=== PATIENT | female | born 1980 | race Caucasian/White ===

== ENCOUNTER 2020-09-09 14:33 | Outpatient (CLI) | payer BC, SELFPAY | END 2020-09-09 14:34 | disposition home or self-care (01) | LOC: ANHAUDIO 14:35 | PROVIDERS: PCP Family Medicine Sports Medicine; Referring Provider Otolaryngology; Visit Provider Otolaryngology | DX: H65.21 Chronic serous otitis media, right ear (principal); H69.81 Other specified disorders of Eustachian tube, right ear; H90.71 Mixed conductive and sensorineural hearing loss, unilateral, right ear, with unrestricted hearing on the contralateral side | CPT/HCPCS: 92557; 92567 ==

== ENCOUNTER 2021-10-30 01:09 | Day surgery (SDC) | payer BC, SELFPAY ==
[2021-10-28 13:56] VITALS: BMI 23.6
--- NOTE | 2021-10-28 14:05 | PC.NURSE ---
Report to the Outpatient Waiting Room, entrance under the green pavilion located off [facility], at time 0900 on date 10/30/21. OR Time: 1100. - You and your visitor will be asked a series of questions to screen for COVID 19 for your protection. - A mask is required within the hospital. One visitor will be allowed to accompany the patient into the hospital. Patients visitor will be instructed to remain with patient at all times or leave the building. We will allow the visitor to come back to the postoperative area when patient is ready. Preoperative COVID Testing Requirements: PT TO E-MAIL + RESULTS No COVID Test needed if: (proof is required; if not received patient will have Rapid Test prior to entry) - Patient has received COVID Vaccine at least 14 days prior to procedure date or - Patient has positive COVID test result within last 90 days of surgery date. COVID Test needed if above criteria is not met Patients may have clear liquids (water, carbonated beverages, clear teas, apple juice) until 3 hours prior to surgery with a maximum of 20 ounces. - No food from midnight until time of surgery Take the following medications with a SIP of water the morning of surgery: NONE Medications to discontinue per physician: N/A Date to take last dose: N/A Please no make-up, nail vietnamese, hairspray, perfume, deodorant, or body powder the day of surgery. No jewelry (including any body piercings) or valuables the day of surgery, leave them at home. Please take a shower or bath the night before, or the morning of, surgery with an antibacterial soap. Wear comfortable, loose fitting clothing. - Jewelry must be removed prior to entering the operating room. Rings and piercings that are not removed may be cut off. - The hospital will not accept responsibility for valuables. - Please leave all valuables, including medications, at home the day of surgery. If you are going home after surgery, a licensed seasonal driver must drive you home. - NO public transportation without another adult. - We recommend that an adult stay with you for 24 hours following discharge. - We also recommend that you do not drive, make important decision, drink alcoholic beverages, or take any drugs that were not prescribed by your health care provider for at least 24 hours after your discharge time. Follow any additional instructions given to you from your surgeon. Telephone instructions given to ELIAZAR WEBB and asked if any additional questions and then verbalized understanding. Patient advised to call surgeon office or pre surgery nurse liaison [phone] if any additional questions.
--- NOTE | 2021-10-28 17:17 | PM.IMHP ---
H&P: HPI History of Present Illness Date/Time: 10/28/21 17:17 Chief Complaint: Eustachian tube dysfunction right otitis media right hearing loss Narrative: patient presents for planned surgical procedure no change in symptoms no change in history Review of Systems Constitutional: Constitutional: Denies fatigue, Denies fever(s) and Denies lethargy Eyes: Eyes: Denies blurry vision and Denies change in vision ENT: Reports as per HPI Cardiovascular: Cardiovascular: Denies chest pain Respiratory: Respiratory: Denies cough Endocrine: Endocrine: Denies fatigue Hematologic/Lymphatic: Hematologic/Lymphatic: Denies easy bleeding, Denies easy bruising and Denies lymphadenopathy Allergic/Immunologic: Allergic/Immunologic: Denies seasonal rhinorrhea [facility] Social History Social History Smoking packs per day: 1 Smoking cigarettes per day: 20.0 Years smoked: 8 Smoking pack-years: 8.00 Smoking status: Current some day smoker Tobacco type: cigarettes Second hand tobacco smoke exposure: No Smoking end date: 08/22/09 Alcohol intake: never Substance use: never Substance use type: does not use Living arrangements: with family Spiritual care concerns: No Meds Home Medications and Allergies Home Medications Medication Instructions Recorded Confirmed Type No Home Medications 09/23/20 10/28/21 History Allergies Allergy/AdvReac Type Severity Reaction Status Date / Time No Known Allergies Allergy Verified 10/28/21 13:55 Exam Const: General: cooperative, healthy appearing, comfortable, well developed and alert HENMT: Head: normal to inspection, normocephalic and atraumatic Ears: hearing grossly normal bilaterally, external ears normal, TM's abnormal bilaterally ( left normal right with fluid retracted) and EAC's normal General nose exam: Normal external nose present, Normal nares present, No nasal polyps present, Normal nasal mucous membranes and turbinates present and Normal septum present Face and sinus: normal facial exam Mouth: Yes Normal oral and palatal mucosa present, Yes lip normal, Yes tongue normal, Yes oropharynx normal and Yes moist mucous membranes Teeth and gingiva: dentition normal and gingiva normal Throat: posterior oropharynx normal, tonsils normal and uvula midline Eyes: General: appearance normal, both eyes and all related structures Periorbital: periorbital findings normal Eyelids: eyelids normal Conjunctivae: conjunctivae normal Sclera: sclerae normal Neck: Neck: normal visual inspection, full ROM and no lymphadenopathy Thyroid: thyroid normal Lymphatic: no lymphadenopathy noted Resp: Effort & Inspection: normal respiratory effort and able to speak in complete sentences Cardio: Jugular venous distension: no JVD Neuro: Cranial nerves: Yes CN's II-XII intact bilaterally Assessment and Plan Assessment and plan (1) Conductive hearing loss in right ear: Code(s): H90.11 - Conductive hearing loss, unilateral, right ear, with unrestricted hearing on the contralateral side Status: Acute Assessment and Plan: plan is for the OR right-sided myringotomy tube insertion. Risks were discussed including bleeding infection damage to any structure above the clavicles facial nerve damage need for further procedures failure to resolve symptoms. Need T-tube. (2) Chronic serous otitis media of right ear: Code(s): H65.21 - Chronic serous otitis media, right ear Status: Acute (3) Hearing loss in right ear: Code(s): H91.91 - Unspecified hearing loss, right ear Status: Acute (4) Dysfunction of right eustachian tube: Code(s): H69.81 - Other specified disorders of Eustachian tube, right ear Status: Acute
--- NOTE | 2021-10-30 07:20 | WPDHPUPDATE1 ---
History and Physical Update Update Date/Time: 10/30/21 07:20 History and Physical has been reviewed, including an updated exam of the patient. There are NO changes in the patient's condition. Risks, benefits, and alternatives have been discussed and questions answered. Patient agrees to proceed with procedure.
[2021-10-30] MEDS: ACETAMINOPHEN 500 MG TABLET 1000 MG PO (07:50)
[2021-10-30] MEDS: LACTATED RINGERS 1,000 ML 30 ML IV CONT (07:57)
--- NOTE | 2021-10-30 07:58 | WPDANESEPPF ---
Anes - Initial Pre Proc Eval Procedure: Operation Date: 10/30/21 09:30 Proposed Procedures p Right Myringotomy with Tube Insertion - Benitez Bernardo MD Date/Time: 10/30/21 07:58 Surgeon: Benitez Bernardo MD Pre Op Diagnosis: Right Chronic Otitis Media Patient Data Age: 41 Gender: F Height: 1.6 m Weight: 60.33 kg Allergies Allergy/AdvReac Type Severity Reaction Status Date / Time No Known Allergies Allergy Verified 10/30/21 07:44 Home Medications Medication Instructions Recorded Confirmed Type No Home Medications 09/23/20 10/28/21 History Patient hx anesthesia problems: none Family hx anesthesia problems: none Results Review: All pre-operative results and documents have been reviewed as part of the pre-operative evaluation. PMFSH Past Medical History Medical History Hx of migraines Social History Social History Smoking packs per day: 1 Smoking cigarettes per day: 20.0 Years smoked: 8 Smoking pack-years: 8.00 Smoking status: Current some day smoker Tobacco type: cigarettes Second hand tobacco smoke exposure: No Smoking end date: 08/22/09 Alcohol intake: never Substance use: never Substance use type: does not use Living arrangements: with family Spiritual care concerns: No Anes - Eval Final PreProcedure Day of Procedure 10/30/21 07:58 Patient weight: normal Heart: regular rate and rhythm Lungs: clear to auscultation Airway: Mallampati scale class II Neurological: alert and oriented Last oral intake: >/= 8 hours ASA classification: II Emergent: no Anesthetic plan: proceed Anesthesia type and monitoring: general GIVS and standard monitoring Results Review: All pre-operative results and documents have been reviewed as part of the pre-operative evaluation. Informed Consent: The patient's anesthetic plan and its attendant risks and benefits were discussed with the patient/family/POA. Questions were solicited and answers provided to the satisfaction of the patient/family/POA.
[2021-10-30 07:59] VITALS: BP 109/68; PULSE 85; RESP 16; TEMP 36.8; O2SAT 100
[2021-10-30] MEDS: CIPROFLOXACIN HCL 0.3% OP SOLN 2.5 ML BTL 4 DROP EACH EAR (08:57)
[2021-10-30 09:04] VITALS: BP 89/50; PULSE 76; RESP 12; O2SAT 100
--- NOTE | 2021-10-30 09:15 | P.OP_ITS ---
Procedure Note - Detailed Date of Procedure 10/30/21 Pre-op Diagnosis Right Chronic Otitis Media, right eustachian tube dysfunction Post-op Diagnosis Same Procedure Performed Right-sided myringotomy with T-tube insertion Surgeon Benitez Bernardo MD Indications See above Findings Severely retracted superior half of TM against ossicular chain. Copious amounts of serous fluid when suction the eardrum returned to more normal position Description of Procedure Patient identified consent verified. Patient brought operating room. Time-out performed. General anesthesia induced mask ventilation maintained. Sky microscope brought into operative field patient prepped and draped 2nd time-out performed. Right-sided severely retracted TM obvious serous effusion. Myringotomy made inferior quadrant T-Tube placed scant bleeding drops placed. T ube patent no complication. Patient tolerated the procedure well. Blood loss less than 1 cc. Care the patient turned over to Anesthesiology. I performed all dictated procedures portions. Drains No Packing No Pathology None sent Complications No immediate complications Condition Stable Disposition PACU
[2021-10-30 09:34] VITALS: BP 104/62; PULSE 86; RESP 12
[2021-10-30 10:04] VITALS: BP 110/58; PULSE 74; RESP 12
[2021-10-30] MEDS: oxyCODONE HCL (*CRX) 5 MG TAB IR PO (10:12)
== END 2021-10-30 10:25 | disposition home or self-care (01) ==
PROVIDERS: PCP Family Medicine Sports Medicine; Visit Provider Otolaryngology
PROC: (CPT 69436; principal; 2021-10-30 09:30)
DX: H65.21 Chronic serous otitis media, right ear (principal); H69.81 Other specified disorders of Eustachian tube, right ear; H90.11 Conductive hearing loss, unilateral, right ear, with unrestricted hearing on the contralateral side; F17.210 Nicotine dependence, cigarettes, uncomplicated
CPT/HCPCS: 69436; A9270; J1100; J2250; J2405; J2704; J3010; J7120

== ENCOUNTER 2022-10-05 16:40 | Outpatient (CLI) | payer BC, SELFPAY ==
[2022-10-05 17:08] LABS: Alanine Aminotransferase 31 U/L (6-35); Aspartate Amino Transferase 41 U/L (14-36)
== END 2022-10-05 16:41 | disposition home or self-care (01) ==
PROVIDERS: PCP Family Medicine Sports Medicine; Visit Provider Podiatrist Foot & Ankle Surgery
DX: B35.1 Tinea unguium (principal)
CPT/HCPCS: 36415; 84450; 84460

== ENCOUNTER 2023-01-04 16:54 | Outpatient (CLI) | payer BC, SELFPAY ==
[2023-01-04 17:14] LABS: Alanine Aminotransferase 28 U/L (6-35); Aspartate Amino Transferase 42 U/L (14-36)
== END 2023-01-04 16:55 | disposition home or self-care (01) ==
LOC: ANHLAB 16:56
PROVIDERS: PCP Family Medicine Sports Medicine; Visit Provider Podiatrist Foot & Ankle Surgery
DX: B35.1 Tinea unguium (principal)
CPT/HCPCS: 36415; 84450; 84460

== ENCOUNTER 2023-04-26 17:25 | Outpatient (CLI) | payer BC, SELFPAY ==
[2023-04-26 18:46] LABS: Alanine Aminotransferase 31 U/L (6-35); Aspartate Amino Transferase 35 U/L (14-36)
== END 2023-04-26 17:26 | disposition home or self-care (01) ==
LOC: ANHLAB 17:27
PROVIDERS: PCP Family Medicine Sports Medicine; Visit Provider Podiatrist Foot & Ankle Surgery
DX: B35.1 Tinea unguium (principal)
CPT/HCPCS: 36415; 84450; 84460

== ENCOUNTER 2024-02-27 16:44 | Outpatient (CLI) | payer BC, SELFPAY ==
[2024-02-27 17:18] LABS: Alanine Aminotransferase 18 U/L (6-35); Aspartate Amino Transferase 31 U/L (14-36)
== END 2024-02-27 16:45 | disposition home or self-care (01) ==
LOC: ANHLAB 16:46
PROVIDERS: PCP Family Medicine Sports Medicine; Visit Provider Podiatrist Foot & Ankle Surgery
DX: B35.1 Tinea unguium (principal)
CPT/HCPCS: 36415; 84450; 84460